=== PATIENT | female | born 1980 | race Caucasian/White ===

== ENCOUNTER → 2024-04-02 08:23 | Outpatient (CLI) | payer OTHER, SELFPAY ==
[2024-04-02 19:44] LABS: Add Manual Diff / Slide Review NO; Basophils Absolute Auto 0 /uL (0-100); Basophils Percent Auto 0.3 % (0-2); Eosinophils Absolute Auto 200 /uL (0-450); Eosinophils Percent Auto 4.4 % (2-4); Hematocrit 41.7 % (36-46); Hemoglobin 14.2 g/dL (12.0-16.0); Lymphocytes Absolute Auto 1600 /uL (1100-4500); Lymphocytes Percent Auto 29.7 % (25-40); Mean Corpuscular HGB Conc 34.1 % (30-36); Mean Corpuscular Hemoglobin 30.7 PG (26-34); Monocytes Absolute Auto 400 /uL (0-900); Monocytes Percent Auto 7.7 % (3-14); Neutrophils Absolute Auto 3100 /uL (1500-7000); Neutrophils Percent Auto 57.9 % (50-75); Platelet Count 300 X10^3/uL (150-400); Red Blood Cell Count 4.63 X10^6/uL (4.0-5.2); Red Cell Distribution Width 12.7 % (11.6-14.8); White Blood Cell Count 5.4 X10^3/uL (4.5-11.0)
[2024-04-02 19:56] LABS: BUN Creatinine Ratio 20.7 (6-22); Blood Urea Nitrogen 17 mg/dL (7-17); Calcium 9.4 mg/dL (8.4-10.2); Carbon Dioxide 29 mmol/L (22-32); Chloride 102 mmol/L (98-107); Cholesterol 253 mg/dL (140-199); Estimated Glomerular Filt Rate > 60 mL/min (>60); Glucose 98 mg/dL (70-100); HDL Cholesterol 101 mg/dL (40-60); HEMOLYSIS 18 (0-50); LDL Cholesterol Calculated 133 mg/dL (<100); Potassium 3.9 mmol/L (3.4-5.1); Sodium 137 mmol/L (137-145); Triglycerides 94 mg/dL (35-150)
[2024-04-02 20:25] LABS: TSH w/ Reflex to FT4 1.56 uIU/mL (0.47-4.68)
[2024-04-02 20:42] LABS: HIV 1 & 2 Ab/Ag 4th Gen Combo NEGATIVE (NEGATIVE)
[2024-04-02 21:26] LABS: Urine N gonorrhoeae NOT DETECTED
[2024-04-02 21:41] LABS: Urine Chlamydia NOT DETECTED
[2024-04-04 04:36] LABS: RPR Screen Non Reactive (Non Reactive)
== END ==
PROVIDERS: PCP Family Medicine; Visit Provider Family Medicine
DX: Z13.1 Encounter for screening for diabetes mellitus (principal); Z13.220 Encounter for screening for lipoid disorders; Z13.6 Encounter for screening for cardiovascular disorders; Z11.3 Encounter for screening for infections with a predominantly sexual mode of transmission; Z12.31 Encounter for screening mammogram for malignant neoplasm of breast
CPT/HCPCS: 80048; 80061; 84443; 85025; 86592; 87389; 87491; 87591

== ENCOUNTER → 2024-10-23 10:33 | Outpatient (CLI) | payer OTHER, SELFPAY ==
--- NOTE | 2024-10-23 10:34 | DI.MRI.S_ITS ---
PROCEDURE: MR KNEE RT WO CON INDICATIONS: Knee pain responsive to PT, suspect meniscus TECHNIQUE: Noncontrast sagittal PD fast spin echo and T2 fast spin echo with fat saturation, sagittal 3-D FLASH with fat saturation; coronal T1 spin echo and PD fast spin echo with fat saturation, and axial PD fast spin echo with fat saturation through the knee. COMPARISON: None. FINDINGS: Image quality: Excellent. Menisci: Radial tear involving posterior periphery of posterior horn medial meniscus extending to both superior and inferior articulating surfaces. Peripheral displacement of medial meniscus bowing medial collateral ligament is seen. There is suggestion of complex oblique tear involving anterior horn and body of lateral meniscus extending to both superior and inferior articulating surfaces. Cruciate ligaments: Patient is status post ACL reconstruction. Attenuated appearance of ACL graft with intrasubstance T2 hyperintense signal suggestive of low to moderate grade intrasubstance partial-thickness tear. No definite full-thickness ACL graft rupture. Posterior bowing of ACL concerning for graft impingement. The posterior cruciate ligament is intact. No gross signal abnormality is seen within femoral tunnel. Cystic areas are seen within the tibial tunnel concerning for tibial tunnel cysts. Medial structures: The medial collateral ligament appears thickened with surrounding soft tissue edema. Visualized portions of the pes anserinus tendons appear normal. No abnormal bursal fluid. Lateral structures: The lateral collateral ligament, long and short heads of the biceps femoris tendon appear intact. The popliteus tendon appears normal. Iliotibial band appears normal. Anterior structures: The quadriceps and patellar tendons appear intact. Patellar alignment is normal. No femoral trochlear dysplasia or ventral trochlear prominence. No edema in the infrapatellar fat pad. Bones and cartilage: Postsurgical changes are noted in distal femur and proximal tibia. No gross marrow edema. No acute fracture or dislocation. 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 Joint space: There is moderate knee joint fluid. No significant popliteal cyst. Normal appearing synovial plicae are incidentally noted. IMPRESSION: 1. Prior ACL reconstruction with postsurgical changes. No abnormal anterior tibial translation. No acute fracture or dislocation. 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 2. Moderate joint effusion, no loose bodies. 3. Attenuated appearance of ACL graft with intrasubstance T2 hyperintense signal suggestive of low to moderate grade intrasubstance partial-thickness tear. No full-thickness ACL graft rupture. Posterior bowing of ACL graft concerning for graft impingement. The PCL is intact. 4. Cystic areas within the tibial tunnel adjacent to the distal ACL graft concerning for tibial tunnel cysts. 5. Radial tear involving posterior horn medial meniscus extending to both superior and inferior articulating surfaces. Complex oblique tear involving anterior horn and body of lateral meniscus extending to both superior and inferior articulating surfaces. 6. Low to moderate grade MCL sprain/partial-thickness tear. Dictated by: Eleno Leyva M.D. on 10/23/2024 at 15:09 Approved by: Eleno Leyva M.D. on 10/23/2024 at 16:01
== END ==
PROVIDERS: PCP Family Medicine; Referring Provider Family Medicine; Visit Provider Family Medicine
DX: S83.271A Complex tear of lateral meniscus, current injury, right knee, initial encounter (principal); S83.241A Other tear of medial meniscus, current injury, right knee, initial encounter; S83.411A Sprain of medial collateral ligament of right knee, initial encounter; M23.91 Unspecified internal derangement of right knee; M17.11 Unilateral primary osteoarthritis, right knee; M94.261 Chondromalacia, right knee; M25.461 Effusion, right knee
CPT/HCPCS: 73721

== ENCOUNTER → 2024-11-20 11:13 | Outpatient (CLI) | payer OTHER, SELFPAY ==
[2024-11-23 11:36] LABS: Hepatitis B Surf Ab Qualitativ Reactive (.)
== END ==
PROVIDERS: PCP Family Medicine; Visit Provider Family Medicine
DX: Z71.85 Encounter for immunization safety counseling (principal)
CPT/HCPCS: 86706

== ENCOUNTER → 2025-02-22 10:15 | Outpatient (CLI) | payer OTHER, SELFPAY ==
[2025-02-22 19:37] LABS: Add Manual Diff / Slide Review NO; Basophils Absolute Auto 100 /uL (0-100); Eosinophils Absolute Auto 100 /uL (0-450); Eosinophils Percent Auto 2.2 % (2-4); Hematocrit 41.4 % (36-46); Hemoglobin 14.3 g/dL (12.0-16.0); Lymphocytes Absolute Auto 2000 /uL (1100-4500); Lymphocytes Percent Auto 30.9 % (25-40); Mean Corpuscular HGB Conc 34.5 % (30-36); Mean Corpuscular Hemoglobin 32.1 PG (26-34); Mean Corpuscular Volume 93.3 fL (80-100); Monocytes Absolute Auto 400 /uL (0-900); Monocytes Percent Auto 5.9 % (3-14); Neutrophils Absolute Auto 3900 /uL (1500-7000); Platelet Count 362 X10^3/uL (150-400); Red Blood Cell Count 4.44 X10^6/uL (4.0-5.2); Red Cell Distribution Width 12.2 % (11.6-14.8); White Blood Cell Count 6.5 X10^3/uL (4.5-11.0)
[2025-02-22 19:42] LABS: BUN Creatinine Ratio 19.3 (6-22); Blood Urea Nitrogen 17 mg/dL (7-17); Calcium 9.6 mg/dL (8.4-10.2); Carbon Dioxide 26 mmol/L (22-32); Chloride 103 mmol/L (98-107); Cholesterol 258 mg/dL (140-199); Estimated Glomerular Filt Rate > 60 mL/min (>60); Glucose 89 mg/dL (70-99); HDL Cholesterol 63 mg/dL (40-60); HEMOLYSIS < 15 (0-50); LDL Cholesterol Calculated 168 mg/dL (<100); Potassium 4.1 mmol/L (3.4-5.1); Sodium 136 mmol/L (137-145); Triglycerides 136 mg/dL (35-150)
[2025-02-22 20:00] LABS: Follicle Stimulating Hormone 4.46 mIU/mL
[2025-02-26 10:36] LABS: Estrogen 326 pg/mL (.)
== END ==
PROVIDERS: PCP Family Medicine; Visit Provider Family Medicine
DX: Z13.1 Encounter for screening for diabetes mellitus (principal); Z13.6 Encounter for screening for cardiovascular disorders; R61 Generalized hyperhidrosis; R23.2 Flushing; I10 Essential (primary) hypertension; Z68.34 Body mass index [BMI] 34.0-34.9, adult
CPT/HCPCS: 80048; 80061; 82672; 83001; 85025